=== PATIENT | male | born 1990 | race Two or more races ===

== ENCOUNTER 2016-11-22 18:28 | Emergency (ER) | payer SELFPAY ==
[~2016-11-22] VITALS: Ht 167.6 cm; Wt 61.2 kg
--- NOTE | 2016-11-22 18:38 | NUR ---
[facility]; HE CALLED 911 FOR LEFT INDEX LACERATION
--- NOTE | 2016-11-22 19:15 | NUR ---
DR. EDMONDS AT THE BEDSIDE FOR SUTURING.
--- NOTE | 2016-11-22 19:52 | NUR ---
LACERATION CLEANED AND DRESSING APPLIED. 6 SUTURES APPLIED.
--- NOTE | 2016-11-22 19:52 | NUR ---
Patient discharged to home in stable condition. Written and verbal after care instructions given. Patient verbalizes understanding of instruction AND RX. PT AMBULATED OUT WITH A STEADY GAIT. VSS.
[2016-11-22 19:55] VITALS: BP 108/78
== END 2016-11-22 19:59 | disposition home or self-care (01) ==
LOC: ER 18:30
DX: S61.211A Laceration without foreign body of left index finger without damage to nail, initial encounter (principal); W23.1XXA Caught, crushed, jammed, or pinched between stationary objects, initial encounter; Y93.89 Activity, other specified; Y92.89 Other specified places as the place of occurrence of the external cause; Y99.9 Unspecified external cause status
CPT/HCPCS: 12002; 99283; A4606; A6403; Z7610